=== PATIENT | female | born 1970 | race Caucasian/White ===

== ENCOUNTER 2018-11-30 03:21 | Emergency (ER) | payer MEDICAID ==
[~2018-11-30] VITALS: Ht 167.6 cm; Wt 90.7 kg
--- NOTE | 2018-11-30 03:23 | NUR ---
PT BIBA BLS TO ER BED 3
--- NOTE | 2018-11-30 03:24 | NUR ---
DR. PITTS BEDSIDE EVALUATING PT
[2018-11-30 03:35] VITALS: BP 138/78
--- NOTE | 2018-11-30 03:35 | NUR ---
48 Y/O FEMALE BIBA BLS. PER PT.'S FAMILY MEMBER, PATIENT WOKE UP AND COMPLAINED OF BODY PAIN. PRIOR TO THIS, PATIENT HAD 3 SHOTS OF ALCOHOL AND WAS "GASPING FOR WATER" AND WAS NOT "FEELING WELL". NASAL TRUMPET WAS APPLIED EN ROUTE. A/O TO VERBAL STIMULI. GCS11; BREATHING IS UNLABORED AND EQUAL; ERMD MADE AWARE OF STATUS. SIDE RAILSX1 AND PLACED ON TEACHER OF THE SIGHT IMPAIRED. AT BEDSIDE. WILL CONTINUE TO MONITOR. PMH:HTN; ANXIETY; DEPRESSION RX:UNKNOWN NKDA
[2018-11-30] MEDS ORDERED: NACL 0.9% 1,000 ML IV ONE (03:40)
--- NOTE | 2018-11-30 04:00 | NUR ---
PATIENT TAKEN TO CT.
[2018-11-30 04:02] LABS: HEMATOCRIT 37.4 % (36-48); HEMOGLOBIN 12.2 g/dL (12.0-16.0); MEAN CORPUSCULAR HEMOGLOBIN 27 pg (27-31); MEAN CORPUSCULAR HGB CONC 33 g/dL (33-37); MEAN CORPUSCULAR VOLUME 82.6 fL (80-94); PLATELET COUNT (AUTO) 441 K/uL (140-450); RED BLOOD CELL COUNT(AUTO) 4.52 MIL/uL (4.20-5.40); RED CELL DISTRIBUTION WIDTH 15.7 % (11.6-13.7); WHITE BLOOD COUNT (AUTO) 8.2 K/uL (4.8-10.8)
[2018-11-30 04:09] LABS: BARBITURATE, URINE NEG. ng/ml (NEG <=200); BENZODIAZEPINE, URINE NEG. ng/mL (NEG <=200); CANNABINOID, URINE NEG. ng/mL (NEG <=50); COCAINE, URINE NEG. ng/mL (NEG <=300); OPIATE, URINE NEG. ng/mL (NEG <=2000); PHENCYCLIDINE SCREEN,URINE NEG. ng/mL (NEG <=25)
[2018-11-30 04:13] LABS: EOSINOPHILS % (MANUAL) 2 % (0-4); LYMPHOCYTES % (MANUAL) 28 % (20-46); MONOCYTES % (MANUAL) 4 % (5-12)
[2018-11-30 04:22] LABS: ANION GAP 15.6 (8-16); ASPARTATE AMINOTRANSFERASE 18 U/L (15-37); CARBON DIOXIDE 23.2 mmol/L (21-32); CHLORIDE 108 mmol/L (98-107); CREATININE 0.7 mg/dL (0.6-1.3); GFR ARICAN-AMERICAN 115 mL/min (>90); GLUCOSE 92 mg/dL (74-106); POTASSIUM 3.8 mmol/L (3.5-5.1); SODIUM SERUM 143 mmol/L (136-145); TOTAL BILIRUBIN 0.1 mg/dL (0.0-1.0)
--- NOTE | 2018-11-30 04:23 | NUR ---
PATIENT BACK FROM CT.
[2018-11-30 04:32] LABS: SALICYLATE < 2.8 mg/dL (2.8-20.0)
--- NOTE | 2018-11-30 04:32 | NUR ---
PATIENT IN NO DISTRESS AT THIS TIME. PATIENT IS STILL NONVERBAL BUT IS ABLE TO FOLLOW SOME COMMAND. ALERT AND ORIENTED TO NAME, VOICE AND, STIMULI. VSS. AT BEDSIDE. WILL CONTINUE TO MONITOR.
--- NOTE | 2018-11-30 04:32 | NUR ---
Caleb navas in EDM - 11/30/18 at 0435 by ZORA PATIENT IN NO DISTRESS AT THIS TIME. VSS. AT BEDSIDE. WILL CONTINUE TO MONITOR.
[2018-11-30 04:40] LABS: ACETAMINOPHEN < 0.5 ug/ml (10-30); UREA NITROGEN, BLOOD 4 mg/dL (7-18)
--- NOTE | 2018-11-30 05:21 | NUR ---
ERMD EVALUATING PATIENT AT THIS TIME.
--- NOTE | 2018-11-30 05:21 | NUR ---
PATIENT IS ABLE TO SPEAK IN SHORT SENTENCES. A/O X3 TO PERSON, PLACE, AND STIMULI. GCS 15. 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 AT BEDSIDE. WILL CONTINUE TO MONITOR PATIENT.
[2018-11-30 05:48] VITALS: BP 105/68
--- NOTE | 2018-11-30 05:48 | NUR ---
Patient discharged with v/s stable. Written and verbal after care instructions given and explained. Patient verbalized understanding. Ambulatory with steady gait. All questions addressed prior to discharge. Advised to follow up with PMD.
== END 2018-11-30 05:48 | disposition home or self-care (01) ==
LOC: MED 03:21
DX: F40.10 Social phobia, unspecified (principal); I10 Essential (primary) hypertension; R41.82 Altered mental status, unspecified; F41.9 Anxiety disorder, unspecified; F32.9 Major depressive disorder, single episode, unspecified
CPT/HCPCS: 36415; 70450; 80053; 80305; 81002; 81025; 85025; 93005; 96360; 96361; 99284; G0480; G0482; J7030

== ENCOUNTER 2019-04-15 16:55 | Emergency (ER) | payer MEDICAID ==
[~2019-04-15] VITALS: Ht 152.4 cm; Wt 77.1 kg
[2019-04-15 17:08] VITALS: BP 120/70
[2019-04-15] MEDS: MORPHINE SULFATE 4 MG/ML SYR IM ONE (17:51)
[2019-04-15] MEDS: ONDANSETRON 4 MG ODT PO ONE (17:51)
[2019-04-15 18:37] VITALS: BP 134/78
--- NOTE | 2019-04-15 18:38 | NUR ---
Stable. Has been seen by MD in ER 7. Xrays and ultrasound done. Has been medicated and pain has decreased MD has reevaluated and Dc'd home Given ACI Understanding verbalized To exit in wheelchair
== END 2019-04-15 18:35 | disposition home or self-care (01) ==
LOC: MED 16:55
DX: T85.848A Pain due to other internal prosthetic devices, implants and grafts, initial encounter (principal); I10 Essential (primary) hypertension
CPT/HCPCS: 29505; 73562; 93971; 96372; 99284; J2270; Q0092; Q0162

== ENCOUNTER 2020-03-17 18:22 | Emergency (ER) | payer MEDICAID ==
[~2020-03-17] VITALS: Ht 160 cm; Wt 81.6 kg
[2020-03-17 18:26] VITALS: BP 150/76
[2020-03-17 19:38] VITALS: BP 150/76
== END 2020-03-17 19:38 | disposition home or self-care (01) ==
LOC: MED 18:22
DX: R20.2 Paresthesia of skin (principal); M79.601 Pain in right arm; M79.602 Pain in left arm; I10 Essential (primary) hypertension; Z85.3 Personal history of malignant neoplasm of breast
CPT/HCPCS: 99283